=== PATIENT | female | born 1995 | race African-American/Black ===

== ENCOUNTER 2020-11-30 11:30 | Emergency (ER) | payer BC, SELFPAY ==
[2020-11-30 11:50] VITALS: BP 111/61; PULSE 88; RESP 18; TEMP 36.6; O2SAT 100
--- NOTE | 2020-11-30 12:12 | ED.SKABFB ---
HPI - Skin/Abscess/Foreign Bdy General Chief complaint: Skin/Abscess/Foreign Body Stated complaint: Insect Bite Source: patient and RN notes reviewed Mode of arrival: ambulatory Limitations: no limitations History of Present Illness HPI narrative: Zahraa is a 25-year-old female patient who ambulated into the [facility] today. Patient states last she stayed in a motel woke up with a scattered rash on her abdomen and back. She went to [facility] was informed it was an allergic reaction and no treatment given. She states that the rash is better. However there is a pustule/abscess on her left flank area that started on Sunday or Sunday. Patient states her sister tried to pop it with a sterile needle and was unsuccessful.. Patient denies any other complaints such as fever, chills, or drainage from area. MD complaint: abscess/boil Onset (ago): day(s) Related Data Home Medications Medication Instructions Recorded Confirmed atomoxetine PO 11/30/20 dextroamphetamine-amphetamine PO 11/30/20 [Mydayis] etonogestrel-ethinyl estradiol vag ring VAGINAL 11/30/20 [NuvaRing] fluoxetine mg 11/30/20 Allergies Allergy/AdvReac Type Severity Reaction Status Date / Time No Known Allergies Allergy Verified 11/30/20 12:03 Review of Systems Review of Systems: CONSTITUTIONAL: Denies body aches, fever, chills, or sweats. EYES: Denies visual changes, redness, or discharge. ENT: Denies rhinorrhea, congestion, sore throat, or otalgia. CARDIOVASCULAR: Denies chest pain, palpitations, or edema. RESPIRATORY: Denies cough or dyspnea. GASTROINTESTINAL: Denies abdominal pain, nausea, vomiting, or diarrhea. GENITOURINARY: Denies dysuria or hematuria. SKIN: rash to abdomen, boil to left flank. MUSCULOSKELETAL: Denies back pain, joint pain, or myalgia. NEUROLOGIC: Denies headache, numbness, tingling, or weakness. PSYCH: Denies depression or anxiety. All systems reviewed & are unremarkable except as noted in HPI and below PMFSH Comments At time of signature, I have reviewed and agree with nursing past medical, surgical, social and family history unless otherwise noted. Please see nursing chart for further information. There is no relevant family history pertinent to the presenting complaint. Exam Narrative: GENERAL: Well-appearing, well-nourished, and in no acute distress. HEAD: Normocephalic, atraumatic. EYES: EOMI. No redness or drainage. Conjunctivae normal. ENT: Mucous membranes pink and moist. Nares clear. No rhinorrhea. TMs normal bilaterally. Throat normal. Uvula midline. NECK: Normal AROM. Supple. . MUSCULOSKELETAL: No bony tenderness. EXTREMITIES: Normal range of motion. No edema. SKIN: Warm, dry. Capillary refill normal. Normal skin turgor; 12cm x 7cm area of erythema to mid left back, erythemic, non-fluctuant, firm to touch, small pustule on left side. NEURO: No focal deficits. Alert and oriented x3. Gait steady. PSYCH: Normal affect. No signs of depression or anxiety. Course Vital Signs Vital signs: Vital Signs Temperature 36.6 C 11/30/20 11:50 Pulse Rate 88 11/30/20 11:50 Respiratory Rate 18 11/30/20 11:50 Blood Pressure 111/61 11/30/20 11:50 Pulse Oximetry 100 11/30/20 11:50 Temperature 36.6 C 11/30/20 11:50 Pulse Rate 88 11/30/20 11:50 Respiratory Rate 18 11/30/20 11:50 Blood Pressure 111/61 11/30/20 11:50 Pulse Oximetry 100 11/30/20 11:50 Reviewed MDM - Skin/Abscess/Foreign Bdy Differential Diagnosis Differential diagnosis: Likely abscess of skin or subcutaneous tissue, urticaria, allergic reaction to drug and cellulitis Critical Care Time Critical Care Time Critical Care Time: No Discharge Plan Discharge Clinical Impression: Cellulitis Qualifiers: Site of cellulitis: trunk Patient Disposition: Home, Self-Care Condition: Stable Instructions: Antibiotic Form, Cellulitis (ED) Additional Instructions: Wash area with ant
== END 2020-11-30 12:36 | disposition home or self-care (01) ==
PROVIDERS: Emergency Provider Nurse Practitioner Family
DX: L03.319 Cellulitis of trunk, unspecified (principal)
CPT/HCPCS: 99213; G0463